=== PATIENT | female | born 1950 | race Caucasian/White ===

== ENCOUNTER → 2023-05-13 06:27 | Day surgery (SDC) | payer MEDICARE, OTHER, SELFPAY | LOC: GI 06:27 | PROVIDERS: ATTENDING PHYSICIAN Internal Medicine | DX: R14.2 Eructation (principal); R10.13 Epigastric pain; K44.9 Diaphragmatic hernia without obstruction or gangrene; K31.7 Polyp of stomach and duodenum; K31.89 Other diseases of stomach and duodenum; K21.00 Gastro-esophageal reflux disease with esophagitis, without bleeding | CPT/HCPCS: 43251; 43239; 88342 ==

== ENCOUNTER 2023-07-12 11:46 | Emergency (ER) | payer MEDICARE, OTHER, SELFPAY ==
[2023-07-12 12:10] VITALS: BP 131/63
[2023-07-12 16:51] LABS: % Basophils 1.1 % (0-2); % Eosinophils 2.8 % (0-6); % Immature Granulocytes 0.1 % (0-0.5); % Lymphocytes 19.6 % (20.5-51.1); % Monocytes 6.9 % (1.7-9.3); % Neutrophils 69.5 % (42.2-75.2); Absolute Basophils 0.1 10^3/uL (0-0.2); Absolute Eosinophils 0.2 10^3/uL (0-0.7); Absolute Lymphocytes 1.4 10^3/uL (1.2-3.4); Absolute Monocytes 0.5 10^3/uL (0.1-0.6); Hematocrit 43.8 % (37.0-47.0); Hemoglobin 14.8 g/dL (12.0-16.0); Mean Corp Hgb Conc. 33.8 g/dL (33.0-37.0); Mean Corpuscular Hgb 29.7 pg (27.0-31.0); Mean Corpuscular Volume 87.8 fL (81.0-99.0); Mean Platelet Volume 9.5 fL (7.4-10.4); Nucleated Red Blood Cells % 0 %; Platelet Count 258 10^3/uL (130-400); Red Blood Cell Count 4.99 10^6/uL (4.20-5.40); Red Cell Dist. Width 12.9 % (11.5-14.5); White Blood Cell Count 7.1 10^3/uL (4.8-10.8)
[2023-07-12 17:00] VITALS: BP 122/73
[2023-07-12 17:05] LABS: ALT (SGPT) 27 U/L (0-35); AST (SGOT) 42 U/L (14-36); Albumin 4.4 g/dl (3.5-5.0); Alkaline Phosphatase 99 U/L (38-126); Blood Urea Nitrogen 21 mg/dl (7-17); Calcium 10.5 mg/dl (8.4-10.2); Carbon Dioxide 28 mmol/L (22-30); Chloride 100 mmol/L (98-107); Glucose 85 mg/dl (70-99); Potassium 4.3 mmol/L (3.5-5.1); Sodium 134 mmol/L (135-145); Total Bilirubin 0.7 mg/dl (0.2-1.3); Total Protein 7.5 g/dl (6.3-8.2); eGFR > 60.00
[2023-07-12 17:15] LABS: Troponin I < 0.012 ng/ml
[2023-07-12 17:35] LABS: TSH Reflex To Free T4 2.73 uIU/ml (0.47-4.68)
[2023-07-12 17:54] LABS: Urine Albumin Negative (Neg - Trace); Urine Bilirubin Negative (Negative); Urine Character Clear (Clear); Urine Color Yellow; Urine Glucose Negative (Negative); Urine Ketone 2+ (Negative); Urine Leukocyte Trace (Negative); Urine Nitrite Negative (Negative); Urine Occult Blood Negative (Negative); Urine Specific Gravity 1.025 (<1.030); Urine Urobilinogen Negative (Neg - 1+)
[2023-07-12 18:00] VITALS: BP 133/77
[2023-07-12 18:05] LABS: Urine Bacteria Many (Negative); Urine White Cell 0-2 /HPF (0-5)
--- NOTE | 2023-07-12 18:56 | ED.GENMED ---
History of Present Illness
General
Chief Complaint: Fatigue
Source: patient
Exam Limitations: none
Time Seen by Provider: 07/12/23 15:49
Nursing documentation reviewed up to this point in time: agreed with
Travel History
Have you had any contact with someone who has COVID-19?: No
Do you have any symptoms of coronavirus? Fever > 100 degrees, chills, cough, shortness of breath, sore throat, loss of taste or smell, muscle aches, or headache?: No
History of Present Illness
History of Present Illness:
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
but no ongoing readings from her watch that she has been wearing throughout the remainder of the day. She tried to go to work and felt fatigued which prompted come to the ER. Denies specific chest pain nausea vomiting any recent change in
medications or caffeine use.
Past History
Past History
ED Past Medical History: Asthma, Cancer (Right breast cancer), Hypercholesterolemia and Other (GERD, ischemic colitis, diverticulitis)
ED Past Surgical History: Gynecological (Tubal ligation) and Other (Right mastectomy with reconstruction)
Social History
Tobacco: Non-smoker
Alcohol: Occasional
Drug: None
Personal:
Living: with family
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
Family History
Family History: Other (Patient's grandmother had heart disease in her 50s and 60s.)
Review of Systems
Review of Systems
Allergies reviewed?: Yes
All Other Systems: ROS reviewed and negative except as documented in HPI and ROS
Phy Exam
Physical Exam
Physical Exam:
GENERAL: Alert , in no apparent distress
EYE: pupils equal and reactive
NECK: Supple, no significant adenopathy.
ENT: o/p clr, mmm.
CARDIAC: Regular rate and rhythm .
LUNGS: Clear breath sounds bilaterally, no acute respiratory distress, no wheezes/rales/rhonchi
ABDOMEN: Soft, without focal tenderness, no r/g, no cvat
NEUROLOGICAL: Alert and oriented, no focal neuro deficits
SKIN: Warm and dry, skin intact.
MUSCULOSKELETAL: No edema, well perfused.
PSYCH: Normal and appropriate interaction.
Course
Orders/Labs/Results
Orders:
Orders
07/12/23 12:13
Electrocardiogram (*1) Urgent
Reason for Study: Chest Pain
EKG- Treatment ONCE
07/12/23 15:51
Add On- LAB Urgent
Tests Added?: tsh free t4
07/12/23 16:42
Complete Blood Count/With Diff Urgent
Comprehensive Metabolic Panel Urgent
TSH Reflex To Free T4 Urgent
Comment: TSH FREE T4 ADDED ON BY FLOOR 3:50PM 07-12-23
Troponin I Routine
07/12/23 17:48
Urinalysis Reflex To Culture Urgent
Date Specimen was Collected: 07/12/23
Time Specimen was Collected: 17:44
Urine Microscopic Reflex Cult Urgent
Urine Culture Urgent
YURY Source: U
Specimen Description:
Date Specimen was Collected: 07/12/23
Time Specimen was Collected: 17:44
Abnormal Lab Results
07/12/23 07/12/23
16:42 17:48
Lymphocytes % 19.6 L %
(20.5-51.1)
Sodium 134 L mmol/L
(135-145)
BUN 21 H mg/dl
(7-17)
Calcium 10.5 H mg/dl
(8.4-10.2)
AST 42 H U/L
(14-36)
Urine Ketones 2+ A
(Negative)
Leukocyte Esterase Rfl Trace A
(Negative)
Urine RBC 3-6 A /HPF
(0-2)
Urine Bacteria (Reflex) Many A
(Negative)
07/12/23 16:42
07/12/23 16:42
Vital Signs
Initial and Last Documented VS:
Initial Vital Signs
Temp Pulse Resp BP Pulse Ox
98.4 F 72 20 131/63 97
07/12/23 12:10 07/12/23 12:10 07/12/23 12:10 07/12/23 12:10 07/12/23 12:10
Last Documented Vital Signs
Temp Pulse Resp BP Pulse Ox
98.4 F 72 15 148/77 98
07/12/23 12:10 07/12/23 19:00 07/12/23 19:00 07/12/23 19:00 07/12/23 19:00
MDM/Problems Addressed
MDM/Problems Addressed:
72-year-old female presenting to the emergency department today with concerns of generalized weakness fatigue symptoms and some palpitations. Potentially in A-fib on and on home monitor though normal EKG here and no A-fib on the monitor for
multiple hours here. Vital signs normal throughout ER stay labs unremarkable troponin negative urinalysis normal. Patient generally well-appearing no acute distress throughout ER stay. She was advised to start aspirin but is [id number]. She
was advised for close cardiac follow-up for further testing of and assessment. Return precautions given.
*Critical Care Note
Total Time (30-74mins, 75-104mins- exclusive of procedures): Not Applicable
ED Attending Note
-
Portions of this chart may have been created with voice recognition software.� Occasional wrong word or��sound alike� substitutions may have occurred due to the inherent limitations of voice recognition software.
Discharge Plan
Departure
Patient Disposition: Home (Routine Discharge)
Date of Disposition: 07/12/23
Time of Disposition: 18:56
Patient with high blood pressure during this ER visit?: No
Condition: Good
Covid-19: Not Applicable
Discharge Problem:
Fatigue
Instructions: Chest Pain CBC Follow Up
Prescriptions:
No Action
albuterol sulfate 1 PUFF HFA aerosol inhaler
1 puff inhalation R Q4HPRN PRN (Reason: asthma)
esomeprazole magnesium [Nexium] 20 MG capsule,delayed release(DR/EC)
20 mg PO DAILY
pravastatin 20 MG tablet
20 mg PO QPM
Symbicort 160/4.5 Mcg Inhaler:
2 puff inhalation BID
Spiriva Respimat 1 PUFF mist
2 puff inhalation DAILY
acetaminophen [Tylenol Ex Str Arthritis Pain] 500 mg Tablet
1,000 mg PO PRN PRN (Reason: pain)
amoxicillin-pot clavulanate 875-125 mg tablet
1 tab PO BID Qty: 13 0RF
Referrals:
Marquez Roche MD [Family Provider] -
Activity Restrictions/Additional Instructions:
You came to the emergency department today with concerns of fatigue generalized weakness prior to arrival. He also concerns of potential atrial fibrillation that was read on a home monitor. Here you are not in atrial fibrillation you had a normal
EKG. It is possible that you had an intermittent and short-lived episode of this. Concerning this please follow closely with cardiology for further assessment and further cardiac testing. Please take an aspirin daily in the meantime. Return to
the emergency department for any worsening, new or concerning symptoms.
Interventions
Interventions:
*Risk Screen - Suicide Last Done: 07/12/23 12:10
*General Assessment Last Done: 07/12/23 12:10
*Neglect/Abuse Screening Last Done: 07/12/23 12:10
ED- Fall Risk Assessment Last Done: 07/12/23 19:15
*ED COVID-19 Vaccine History Last Done: 07/12/23 19:15
*Nursing Disposition Last Done: 07/12/23 19:15
Discharge Date and Time
Discharge Date/Time: 07/12/23 19:15
Print Language: KINYARWANDA
[2023-07-12 19:00] VITALS: BP 148/77
== END 2023-07-12 19:15 | disposition home or self-care (01) ==
LOC: EMR 11:46
PROVIDERS: Physician Assistant; Student in an Organized Health Care Education/Training Program; EMERGENCY PHYSICIAN Emergency Medicine; FAMILY PHYSICIAN Family Medicine
DX: R53.83 Other fatigue (principal); R53.1 Weakness; R00.2 Palpitations; J45.909 Unspecified asthma, uncomplicated; E78.00 Pure hypercholesterolemia, unspecified; K21.9 Gastro-esophageal reflux disease without esophagitis; K57.92 Diverticulitis of intestine, part unspecified, without perforation or abscess without bleeding; K55.9 Vascular disorder of intestine, unspecified; Z85.3 Personal history of malignant neoplasm of breast; Z90.11 Acquired absence of right breast and nipple; Z88.1 Allergy status to other antibiotic agents; Z91.013 Allergy to seafood
CPT/HCPCS: 99283; 80053; 81003; 81015; 84443; 84484; 85025; 87086; 93005

== ENCOUNTER → 2023-07-30 11:26 | Outpatient (REF) | payer MEDICARE, OTHER, SELFPAY | LOC: DHCBC/DCA 11:26 | PROVIDERS: ATTENDING PHYSICIAN Internal Medicine Cardiovascular Disease; FAMILY PHYSICIAN Family Medicine | DX: R07.89 Other chest pain (principal) | CPT/HCPCS: 78452; 93017; A9500; J2785 ==

== ENCOUNTER 2024-03-09 22:29 | Inpatient (IN) | payer MEDICARE, OTHER, SELFPAY ==
[2024-03-09] VITALS (7 sets, daily range): BP systolic 112–153; BP diastolic 51–72; BMI 26.6
--- NOTE | 2024-03-09 17:58 | ED.GENMED ---
ED Provider Triage
<Felicita Piña PA-C - Last Filed: 03/09/24 17:59>
-
Patient seen by provider in Triage?: Seen in Triage
Attestation: A medical screening examination has been initiated by a qualified medical provider. Based on the assessment performed at this time, it has been determined that an emergent medical condition may exist and the patient has been informed
that further medical evaluation and possible additional diagnostic testing may be needed.
HPI: 73yoF here with a cough and SOB since yesterday. Hx of COPD. Using albuterol every hour. Started on azithromycin and prednisone by PCP today. Kaylene currently has the flu.
GENERAL: Alert , in no apparent distress
EYE: No visual abnormalities.
NECK: Trachea midline
ENT: No visible abnormalities.
LUNGS: No acute respiratory distress
NEUROLOGICAL: Alert and oriented
SKIN: Skin intact. No visible changes.
MUSCULOSKELETAL: Moving extremities normally
PSYCH: Normal and appropriate interaction.
This is a medical evaluation conducted in person to initiate diagnostic evaluation and provide initial therapeutics. Please see further documentation by the treating clinician.
Cardiac labs, EKG, COVID/flu swab, and CXR ordered.
History of Present Illness
<Felicita Piña PA-C - Last Filed: 03/09/24 17:59>
General
Chief Complaint: Breathing Problem
Time Seen by Provider: 03/09/24 19:11
<Magdaleno Zamora DO - Last Filed: 03/10/24 01:48>
General
Source: patient
History of Present Illness
History of Present Illness:
This is 73-year-old female with history of asthma and COPD who presents short of breath. Patient states she has had a cough started yesterday but today just felt sick and cough persisted. Went to see her PCP who gave her Z-Philip and a Medrol
Dosepak. The patient admits that she also has albuterol rescue at home. Patient states she just felt more short of breath. Family member has the flu.
Past History
<Felicita Piña PA-C - Last Filed: 03/09/24 17:59>
Past History
ED Past Medical History: Asthma, Cancer (Right breast cancer), Hypercholesterolemia and Other (GERD, ischemic colitis, diverticulitis)
ED Past Surgical History: Gynecological (Tubal ligation) and Other (Right mastectomy with reconstruction)
Social History
Tobacco: Non-smoker
Alcohol: Occasional
Drug: None
Personal:
Living: with family
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
Family History
Family History: Other (Patient's grandmother had heart disease in her 50s and 60s.)
Phy Exam
<Magdaleno Zamora DO - Last Filed: 03/10/24 01:48>
Physical Exam
Physical Exam:
CONSTITUTIONAL Patient alert and oriented to person, place and time. Well-appearing. Vital signs reviewed.
HEAD atraumatic, normocephalic.
EYES eyelids normal to inspection, Extraocular muscles intact, Conjunctiva normal, Sclera normal.
NECK normal range of motion, Trachea midline, no jugular venous distention.
RESPIRATORY CHEST No respiratory distress noted, Chest expansion equal, scant bilateral.
CARDIOVASCULAR regular rate and rhythm, Heart sounds normal.
BACK normal inspection, no obvious deformities
UPPER EXTREMITY range of motion normal, Motor strength normal, no cyanosis, no edema.
LOWER EXTREMITY range of motion normal, Motor strength normal, no cyanosis, no edema.
NEURO Speech normal, No focal motor deficits, Bassam coma scale 15, Memory normal, Cranial Nerves intact to screening exam.
SKIN skin warm, dry, and normal in color.
Scores
<Magdaleno Zamora DO - Last Filed: 03/10/24 01:48>
Heart Failure Risk
Heart Failure Risk Score: Not Applicable
Course
<Felicita Piña PA-C - Last Filed: 03/09/24 17:59>
Orders/Labs/Results
Orders:
Orders
03/09/24 17:52
Chest [CR Chest - 2 Views ] Urgent
Comment:
Reason For Exam: cough
03/09/24 17:58
Electrocardiogram (*1) Urgent
Reason for Study: Shortness of Breath
EKG- Treatment ONCE
03/09/24 18:03
COVID-19 Antigen Urgent
Source: Nasal Swab
Complete Blood Count/With Diff Urgent
Comprehensive Metabolic Panel Urgent
Troponin I Urgent
Influenza A+B Rapid Molecular Urgent
YURY Source: Nasal Swab
Specimen Description:
03/09/24 19:30
Ipratropium/Albuterol Sulfate [Duoneb] 3 ml INH R NOW STA
Oseltamivir Phosphate [Tamiflu] 75 mg PO NOW STA
03/09/24 19:31
Ipratropium/Albuterol Sulfate [Duoneb] 3 ml INH R NOW STA
03/09/24 21:10
Dexamethasone Sod Phosphate [Decadron] 10 mg IV NOW STA
03/09/24 21:34
Urine Osmolality Random [Osmolality, Random Urine] Routine
Date Specimen was Collected: 03/10/24
Time Specimen was Collected: 00:40
Urine Sodium Routine
Date Specimen was Collected: 03/10/24
Time Specimen was Collected: 00:40
03/09/24 21:49
Admit/Transfer Patient As Directed
Co-Sign Provider:
Level of Care: Inpatient admission
Assign to:: Medical/Surgical
Physician / Group: Vi Mendez
Diagnosis: Influenza A, hypoxic resp insufficiency
Reason for Hospitalization: Influenza A, hypoxic resp insufficiency
Expected length of stay greater than two midnights?: Yes
ELOS- Estimated Length of Stay in days: 3
I certify the patient meets the requirements for IP care: Yes
PRN Pain Medication Management As Directed
May give lesser potent ordered pain med per pt: Yes
preference::
Protocol:: Medication orders for pain may be administered in a
manner that supports deferring to patient preference
when the pt is:
- Requesting an ordered lesser potent pain medication.
Least to most potent pain medications are defined
as: acetaminophen < NSAID < tramadol < opioids
(morphine, oxycodone, hydromorphone).
- Requesting a lesser dose of the same medication IF
ORDERED.
- Requesting a less intrusive route of administration
if both routes are prescribed by the provider (PO <
IV).
03/09/24 21:50
Code Status As Directed
Resuscitation Status: Full Code
03/09/24 23:15
Acetaminophen [Tylenol] 650 mg PO Q4HPRN PRN
Benzonatate [Tessalon Perles] 200 mg PO TIDPRN PRN
Guaifenesin [Mucinex] 600 mg PO Q12
Ipratropium/Albuterol Sulfate [Duoneb] 3 ml INH R Q4HPRN PRN
03/09/24 23:15
Activity As Directed
Activity Level: As Tolerated
Intake/ Output As Directed
Frequency: Per unit guidelines
Vital Signs As Directed
Frequency: Per unit guidelines
Copd Education [RESP] Routine
DX Deep Vein Thrombosis Video Routine
03/10/24 Breakfast
Regular
At Your Request: Full Participation
Fluid Restriction: 1440 mL/day (48 oz)
Basic Metabolic Panel IN AM
Complete Blood Count/With Diff IN AM
03/10/24 08:00
Dexamethasone Sod Phosphate [Decadron] 4 mg IV Q12H
Ipratropium/Albuterol Sulfate [Duoneb] 3 ml INH R QID
Oseltamivir Phosphate [Tamiflu] 75 mg PO BID
Pantoprazole [Protonix] 40 mg PO DAILY
03/10/24 18:00
Enoxaparin Sodium [Lovenox] 40 mg SC QPM
Pravastatin Sodium [Pravachol] 20 mg PO QPM
Abnormal Lab Results
03/09/24
18:03
Absolute Neuts (auto) 7.2 H 10^3/uL
(1.4-6.5)
Absolute Lymphs (auto) 0.2 L 10^3/uL
(1.2-3.4)
Neutrophils % 94.8 H %
(42.2-75.2)
Lymphocytes % 2.8 L %
(20.5-51.1)
Monocytes % 1.6 L %
(1.7-9.3)
Sodium 129 L mmol/L
(135-145)
Glucose 152 H mg/dl
(70-99)
AST 44 H U/L
(14-36)
03/09/24 18:03
03/09/24 18:03
Vital Signs
Initial and Last Documented VS:
Initial Vital Signs
Temp Pulse Resp BP Pulse Ox
98.6 F 95 20 112/72 96
03/09/24 17:46 03/09/24 17:46 03/09/24 17:46 03/09/24 17:46 03/09/24 17:46
Last Documented Vital Signs
Temp Pulse Resp BP Pulse Ox
98.3 F 85 23 116/51 95
03/09/24 23:15 03/09/24 23:15 03/09/24 23:00 03/09/24 23:15 03/09/24 23:15
Clauslt;Magdaleno Zamora, - Last Filed: 03/10/24 01:48>
Orders/Labs/Results
Orders:
Orders
03/09/24 17:52
Chest [CR Chest - 2 Views ] Urgent
Comment:
Reason For Exam: cough
03/09/24 17:58
Electrocardiogram (*1) Urgent
Reason for Study: Shortness of Breath
EKG- Treatment ONCE
03/09/24 18:03
COVID-19 Antigen Urgent
Source: Nasal Swab
Complete Blood Count/With Diff Urgent
Comprehensive Metabolic Panel Urgent
Troponin I Urgent
Influenza A+B Rapid Molecular Urgent
YURY Source: Nasal Swab
Specimen Description:
03/09/24 19:30
Ipratropium/Albuterol Sulfate [Duoneb] 3 ml INH R NOW STA
Oseltamivir Phosphate [Tamiflu] 75 mg PO NOW STA
03/09/24 19:31
Ipratropium/Albuterol Sulfate [Duoneb] 3 ml INH R NOW STA
03/09/24 21:10
Dexamethasone Sod Phosphate [Decadron] 10 mg IV NOW STA
03/09/24 21:34
Urine Osmolality Random [Osmolality, Random Urine] Routine
Date Specimen was Collected: 03/10/24
Time Specimen was Collected: 00:40
Urine Sodium Routine
Date Specimen was Collected: 03/10/24
Time Specimen was Collected: 00:40
03/09/24 21:49
Admit/Transfer Patient As Directed
Co-Sign Provider:
Level of Care: Inpatient admission
Assign to:: Medical/Surgical
Physician / Group: Vi Mendez
Diagnosis: Influenza A, hypoxic resp insufficiency
Reason for Hospitalization: Influenza A, hypoxic resp insufficiency
Expected length of stay greater than two midnights?: Yes
ELOS- Estimated Length of Stay in days: 3
I certify the patient meets the requirements for IP care: Yes
PRN Pain Medication Management As Directed
May give lesser potent ordered pain med per pt: Yes
preference::
Protocol:: Medication orders for pain may be administered in a
manner that supports deferring to patient preference
when the pt is:
- Requesting an ordered lesser potent pain medication.
Least to most potent pain medications are defined
as: acetaminophen < NSAID < tramadol < opioids
(morphine, oxycodone, hydromorphone).
- Requesting a lesser dose of the same medication IF
ORDERED.
- Requesting a less intrusive route of administration
if both routes are prescribed by the provider (PO <
IV).
03/09/24 21:50
Code Status As Directed
Resuscitation Status: Full Code
03/09/24 23:15
Acetaminophen [Tylenol] 650 mg PO Q4HPRN PRN
Benzonatate [Tessalon Perles] 200 mg PO TIDPRN PRN
Guaifenesin [Mucinex] 600 mg PO Q12
Ipratropium/Albuterol Sulfate [Duoneb] 3 ml INH R Q4HPRN PRN
03/09/24 23:15
Activity As Directed
Activity Level: As Tolerated
Intake/ Output As Directed
Frequency: Per unit guidelines
Vital Signs As Directed
Frequency: Per unit guidelines
Copd Education [RESP] Routine
DX Deep Vein Thrombosis Video Routine
03/10/24 Breakfast
Regular
At Your Request: Full Participation
Fluid Restriction: 1440 mL/day (48 oz)
Basic Metabolic Panel IN AM
Complete Blood Count/With Diff IN AM
03/10/24 08:00
Dexamethasone Sod Phosphate [Decadron] 4 mg IV Q12H
Ipratropium/Albuterol Sulfate [Duoneb] 3 ml INH R QID
Oseltamivir Phosphate [Tamiflu] 75 mg PO BID
Pantoprazole [Protonix] 40 mg PO DAILY
03/10/24 18:00
Enoxaparin Sodium [Lovenox] 40 mg SC QPM
Pravastatin Sodium [Pravachol] 20 mg PO QPM
Abnormal Lab Results
03/09/24
18:03
Absolute Neuts (auto) 7.2 H 10^3/uL
(1.4-6.5)
Absolute Lymphs (auto) 0.2 L 10^3/uL
(1.2-3.4)
Neutrophils % 94.8 H %
(42.2-75.2)
Lymphocytes % 2.8 L %
(20.5-51.1)
Monocytes % 1.6 L %
(1.7-9.3)
Sodium 129 L mmol/L
(135-145)
Glucose 152 H mg/dl
(70-99)
AST 44 H U/L
(14-36)
03/09/24 18:03
03/09/24 18:03
Vital Signs
Initial and Last Documented VS:
Initial Vital Signs
Temp Pulse Resp BP Pulse Ox
98.6 F 95 20 112/72 96
03/09/24 17:46 03/09/24 17:46 03/09/24 17:46 03/09/24 17:46 03/09/24 17:46
Last Documented Vital Signs
Temp Pulse Resp BP Pulse Ox
98.3 F 85 23 116/51 95
03/09/24 23:15 03/09/24 23:15 03/09/24 23:00 03/09/24 23:15 03/09/24 23:15
<Magdaleno Zamora DO - Last Filed: 03/10/24 01:48>
MDM/Problems Addressed
Differential Diagnosis Includes:
Pneumonia, influenza, asthma, bronchitis, CHF
MDM/Problems Addressed:
Influenza A, hypoxia
<Magdaleno Zamora DO - Last Filed: 03/10/24 01:48>
*Radiology
Radiology exam reviewed: radiology read reviewed
*Pulse Oximetry
Patient hypoxic: yes
*EKG
Interpreted by ED Provider?: Yes
Interpretation: normal
Rate: normal
Rhythm: sinus
[place]: normal axis
QRS Pattern: normal QRS
Ischemia: no ischemia
*Editor Continuity And Script Interpretation
Rate: normal
Interpretation: normal
Rhythm: sinus
*Critical Care Note
Total Time (30-74mins, 75-104mins- exclusive of procedures): Not Applicable
Data Reviewed
Source: patient
Prescriptions/Medications Considered But Not Given:
Considered antibiotics but influenza A positive
<Magdaleno Zamora DO - Last Filed: 03/10/24 01:48>
Patient Management
Discussion with other providers: Hospitalist
Escalation/DeEscalation of care consider admission/obs:
Patient reassessed and continues to feel short of breath. She feels little bit better but continues to feel short of breath and has a pulse ox of 91%. Mildly tachycardic. In light of her persistent dyspnea and hypoxia, admit.
ED Attending Note
<Felicita Piña PA-C - Last Filed: 03/09/24 17:59>
-
Portions of this chart may have been created with voice recognition software.� Occasional wrong word or��sound alike� substitutions may have occurred due to the inherent limitations of voice recognition software.
Discharge Plan
Departure
Patient Disposition: Admit
Date of Disposition: 03/09/24
Time of Disposition: 21:16
Admit to: Telemetry
Presentation/result/management discussed w/ accepting MD/DO: Hospitalist
Discharge Problem:
Hypoxia, Influenza A, Acute asthma exacerbation
Interventions
Interventions:
*Risk Screen - Suicide Last Done: 03/09/24 17:46
*General Assessment Last Done: 03/09/24 17:46
*Neglect/Abuse Screening Last Done: 03/09/24 17:46
ED- Fall Risk Assessment Last Done: 03/09/24 19:08
*ED COVID-19 Vaccine History Last Done: 03/10/24 00:05
*Nursing Disposition Last Done: 03/09/24 23:05
ED- Cardiac Assessment Last Done: 03/09/24 19:08
ED- Pulmonary Assessment Last Done: 03/09/24 19:08
Discharge Date and Time
Discharge Date/Time: 03/09/24 23:05
[2024-03-09 18:14] LABS: % Basophils 0.5 % (0-2); % Immature Granulocytes 0.3 % (0-0.5); % Lymphocytes 2.8 % (20.5-51.1); % Monocytes 1.6 % (1.7-9.3); % Neutrophils 94.8 % (42.2-75.2); Absolute Lymphocytes 0.2 10^3/uL (1.2-3.4); Absolute Monocytes 0.1 10^3/uL (0.1-0.6); Absolute Neutrophils 7.2 10^3/uL (1.4-6.5); Hematocrit 40.2 % (37.0-47.0); Hemoglobin 13.8 g/dL (12.0-16.0); Mean Corp Hgb Conc. 34.3 g/dL (33.0-37.0); Mean Corpuscular Hgb 30.1 pg (27.0-31.0); Mean Corpuscular Volume 87.6 fL (81.0-99.0); Mean Platelet Volume 9.3 fL (7.4-10.4); Nucleated Red Blood Cells % 0 %; Platelet Count 230 10^3/uL (130-400); Red Blood Cell Count 4.59 10^6/uL (4.20-5.40); Red Cell Dist. Width 13.2 % (11.5-14.5); White Blood Cell Count 7.6 10^3/uL (4.8-10.8)
[2024-03-09 18:27] LABS: ALT (SGPT) 29 U/L (0-35); AST (SGOT) 44 U/L (14-36); Albumin 4.2 g/dl (3.5-5.0); Alkaline Phosphatase 86 U/L (38-126); Blood Urea Nitrogen 14 mg/dl (7-17); Calcium 9.7 mg/dl (8.4-10.2); Carbon Dioxide 22 mmol/L (22-30); Chloride 99 mmol/L (98-107); Glucose 152 mg/dl (70-99); Potassium 4.1 mmol/L (3.5-5.1); Sodium 129 mmol/L (135-145); Total Bilirubin 0.4 mg/dl (0.2-1.3); eGFR > 60.00
[2024-03-09 18:28] LABS: COVID-19 Antigen Negative (Negative)
[2024-03-09 18:37] LABS: Troponin I < 0.012 ng/ml
[2024-03-09] MEDS: TAMIFLU 75 MG PO (19:34)
[2024-03-09] MEDS: DUONEB 3 ML INH ×2 (19:34)
[2024-03-09] MEDS: DECADRON 10 MG IV (21:16)
--- NOTE | 2024-03-09 21:26 | HPS.HSE ---
Family Physician
-
Family Physician: INTERVIEWE UNKNOWN - PT NOT
Chief Complaint
-
cough and shortness of breath
History of Present Illness
Ms. Rita Abreu is a 73 yo woman with hx COPD, HLD, GERD, breast CA s/p mastectomy, chemo and radiation presents to the ER with cough and shortness of breath. Patient's grandson has the flu.
Yesterday morning developed a cough, today she had more shortness of breath. She went to see her PCP and was prescribed Azithromycin and Prednisone. Patient had increased work of breathing and came to the ER.
No fevers/chills. Cough is non-productive. No chest pain. No nausea/vomiting/diarrhea. No body aches. Feels fatigued. No LE swelling. No rash.
Medical History
Past Medical History
Past Medical History: Reports Other (COPD, HLD, GERD, breast CA s/p mastectomy, chemo and radiatio)
Past Surgical History: Reports Gynocological and Other (right mastectomy and reconstruction, left wrist surgery 2021)
Social History
Tobacco: Non-smoker
Alcohol: Occasional
Family History
Family History: Not pertinent
Allergies / Home Medications
Allergies reflects when Allergies were last updated in [facility].
Home Medications with original date entered in [facility]
Allergy/Medication List:
Allergies
Allergy/AdvReac Type Severity Reaction Status Date / Time
shellfish derived Allergy Mild Vomiting Verified 03/30/22 11:03
levofloxacin [From Levaquin] AdvReac abdominal Verified 03/30/22 11:03
pain
Home Medications
albuterol sulfate 90 mcg/actuation aerosol inhaler 1 puff inhalation R Q4HPRN PRN asthma 10/20/13
esomeprazole magnesium 20 mg capsule,delayed release (Nexium) 20 mg PO DAILY 05/08/15
pravastatin 20 mg tablet 20 mg PO QPM 07/23/18
Symbicort 160/4.5 Mcg Inhaler: 2 puff inhalation BID 03/03/21
tiotropium bromide 2.5 mcg/actuation mist for inhalation (Spiriva Respimat) 2 puff inhalation DAILY 03/05/21
acetaminophen 500 mg tablet 1,000 mg PO PRN PRN pain 01/27/22
amoxicillin 875 mg-potassium clavulanate 125 mg tablet 1 tab PO BID #13 tabs 03/30/22
awaiting med rec
Review of Systems
-
History Source: Patient
A 12 point ROS was completed and negative except as noted: Yes
Physical Exam
Vital Signs
Vital Signs
Temp Pulse Resp BP Pulse Ox
98.6 F 89 11 141/72 95
03/09/24 17:46 03/09/24 20:30 03/09/24 20:30 03/09/24 20:00 03/09/24 20:30
Physical Exam
General: No Apparent Distress and Conversant
HEENT: PERRLA
Respiratory: Other (cough with inspiration )
Cardiac: S1/S2 and Regular Rhythm
GI: Soft and Non Tender
Musculoskeletal: No Edema
Skin: Warm and Dry; No Rash
Neuro: AO x 3
Psych: Calm
Laboratory Results
-
03/09/24 18:03
03/09/24 18:03
Laboratory Results
Total Bilirubin 0.4 mg/dl (0.2-1.3) 03/09/24 18:03
AST 44 U/L (14-36) H 03/09/24 18:03
ALT 29 U/L (0-35) 03/09/24 18:03
Alkaline Phosphatase 86 U/L (38-126) 03/09/24 18:03
Troponin I < 0.012 ng/ml 03/09/24 18:03
Data Reviewed
-
Diagnostic Radiology: Report Reviewed by me
Lab Data: Labs Reviewed by me
Impression/Plan
-
Ms. Rita Abreu is a 73 yo woman with hx COPD, HLD, GERD, breast CA s/p mastectomy, chemo and radiation presents to the ER with cough and shortness of breath. Patient's grandson has the flu.
Triage VS: T 98.6, P 95, RR 20, BP 112/72, SpO2 96%
LABS: WBC 7.6, Hg 13.8, PLT 230, Na 129, K+ 4.1, Cl 99, CO2 22, BUN 14, Cr 0.6, Glucose 152, Ca 9.7, T. Bili 0.4, AST 44, ALT 29, Alk Phos 86
Trop < 0.012
Covid-19 Negative
Influenza Positive
CXR:
IMPRESSION:
Stable hyperinflation and linear parenchymal scarring at the lung bases. No acute cardiopulmonary process identified.
MAR: IV Decadron, Tamiflu, Duonebs
Influenza A
mild Hypoxic Respiratory Insufficiency
Acute COPD Exacerbation
-admit to med/surg
-continue Tamiflu
-standing duonebs and PRN
-mucinex, Tessalon Perles PRN
-O2 support as needed
Hyponatremia
-follow up urine studies
-suspect SIADH - will fluid restrict for now
GERD
-PPI
HLD
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
DVT PPx Lovenox subQ
FULL CODE
[2024-03-10] MEDS: MUCINEX 600 MG PO ×3 (00:04→21:07)
[2024-03-10] MEDS: TESSALON PERLES 200 MG PO ×3 (00:04→15:52)
[2024-03-10 01:15] LABS: Osmolality Urine 336 mOsm/kg (300-900)
[2024-03-10 01:30] LABS: Urine Sodium 20 mmol/L (30-90)
[2024-03-10] MEDS: NON-FORMULARY ITEM INH (02:04)
[2024-03-10 02:58] VITALS: BMI 26.2
[2024-03-10 07:22] VITALS: BP 115/84
[2024-03-10] MEDS: NON-FORMULARY ITEM 2 PUFF INH ×2 (08:53→21:40)
[2024-03-10] MEDS: VENTOLIN NEBULES 2.5 MG INH ×4 (08:53→21:41)
[2024-03-10 09:11] LABS: % Immature Granulocytes 0.5 % (0-0.5); % Monocytes 3.3 % (1.7-9.3); % Neutrophils 90.2 % (42.2-75.2); Absolute Lymphocytes 0.4 10^3/uL (1.2-3.4); Absolute Monocytes 0.2 10^3/uL (0.1-0.6); Absolute Neutrophils 5.2 10^3/uL (1.4-6.5); Hematocrit 43.1 % (37.0-47.0); Hemoglobin 14.4 g/dL (12.0-16.0); Mean Corp Hgb Conc. 33.4 g/dL (33.0-37.0); Mean Corpuscular Hgb 29.8 pg (27.0-31.0); Mean Platelet Volume 9.8 fL (7.4-10.4); Nucleated Red Blood Cells % 0 %; Platelet Count 248 10^3/uL (130-400); Red Blood Cell Count 4.84 10^6/uL (4.20-5.40); Red Cell Dist. Width 13.2 % (11.5-14.5); White Blood Cell Count 5.8 10^3/uL (4.8-10.8)
[2024-03-10] MEDS: DECADRON 4 MG IV (09:11)
[2024-03-10] MEDS: PROTONIX 40 MG PO (09:11)
[2024-03-10] MEDS: TAMIFLU 75 MG PO ×2 (09:11→21:07)
[2024-03-10 09:23] LABS: Blood Urea Nitrogen 14 mg/dl (7-17); Calcium 10.1 mg/dl (8.4-10.2); Carbon Dioxide 25 mmol/L (22-30); Chloride 101 mmol/L (98-107); Estimated Creatinine Clearance 70 ml/min; Glucose 144 mg/dl (70-99); Potassium 4.3 mmol/L (3.5-5.1); Sodium 135 mmol/L (135-145); eGFR > 60.00
--- NOTE | 2024-03-10 11:19 | CM ---
CM following re: discharge planning.
Reviewed pt's chart, met with pt.
Pt is a 73 year old female, admitted with primary dx of Influenza A, mild Hypoxic Respiratory Insufficiency. Currently requires 2L NC of O2, continue supportive care.
Pt reports she lives with 1SH, 0 steps, has a ramp, has 2 supportive children. Pt described herself as independent in all areas [employer]. No DME, VN or SNF history.
PCP: Elbert Bowser
Pharmacy: [facility]
D/C plan: home with anticipated no needs. family to transport at discharge.
CM will follow with discharge plan updates as hospitalization progresses
[2024-03-10 11:48] LABS: Procalcitonin < 0.05 ng/ml (0.0-0.25)
--- NOTE | 2024-03-10 12:44 | W.PN.HOSP.TC ---
Today's Communication/Plan
-
Wean off O2, O2 goal greater than 92%
Tamiflu
Incentive spirometer, Acapella
DuoNebs
transition to po pred
Assessment / Plan
Assessment / Plan
Physical Exam
General: No Apparent Distress and Conversant
HEENT: PERRLA
Respiratory: Other (cough with inspiration ) no wheezing evident
Cardiac: S1/S2 and Regular Rhythm
GI: Soft and Non Tender
Musculoskeletal: No Edema
Skin: Warm and Dry; No Rash
Neuro: AO x 3
Psych: Calm
Influenza A
mild Hypoxic Respiratory Insufficiency
Acute COPD Exacerbation
-admit to med/surg
-continue Tamiflu
-standing duonebs and PRN
-mucinex, Tessalon Perles PRN
-O2 support as needed
� Incentive spirometry, Acapella
�O2 goal greater than 92%, wean o2 as tolerated
� Transition to prednisone 40 mg
Hyponatremia
-follow up urine studies
-suspect SIADH - will fluid restrict for now
�Improving
GERD
-PPI
HLD
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
DVT PPx Lovenox subQ
FULL CODE
Anticipated Discharge: Within 24 hours
Subjective/Interval History
-
Date of Service: March 10, 2024
Feels better today
Objective Data
-
Labs:
Laboratory Results
03/10/24
07:24
WBC 5.8
Hgb 14.4
Hct 43.1
Plt Count 248
Sodium 135
Potassium 4.3
Chloride 101
Carbon Dioxide 25
BUN 14
Creatinine 0.6
Glucose 144 H
Calcium 10.1
Vital Signs:
Vital Signs
Temp Pulse Resp BP Pulse Ox
97.0 F 84 18 115/84 94
03/10/24 07:22 03/10/24 12:03 03/10/24 12:03 03/10/24 07:22 03/10/24 12:03
Review of Systems
-
History Source: Patient
All other systems: Not reviewed unless documented
Data Reviewed
-
Diagnostic Radiology: Report Reviewed by me
Labs: Labs Reviewed by me
[2024-03-10 15:07] VITALS: BP 110/67
[2024-03-10] MEDS: DELTASONE 40 MG PO (15:51)
[2024-03-10] MEDS: LOVENOX 40 MG SC (17:57)
[2024-03-10] MEDS: PRAVACHOL 20 MG PO (17:58)
[2024-03-10] MEDS: FLUSH (NSS) 1 FLUSH IV (21:18)
[2024-03-10 23:06] VITALS: BP 131/62
[2024-03-11] MEDS: TESSALON PERLES 200 MG PO ×2 (00:01→12:21)
[2024-03-11 07:11] LABS: Hematocrit 41.3 % (37.0-47.0); Mean Corp Hgb Conc. 33.9 g/dL (33.0-37.0); Mean Corpuscular Hgb 30.2 pg (27.0-31.0); Mean Platelet Volume 9.3 fL (7.4-10.4); Platelet Count 258 10^3/uL (130-400); Red Blood Cell Count 4.64 10^6/uL (4.20-5.40); Red Cell Dist. Width 13.4 % (11.5-14.5); White Blood Cell Count 11.7 10^3/uL (4.8-10.8)
[2024-03-11 07:33] LABS: Blood Urea Nitrogen 24 mg/dl (7-17); Carbon Dioxide 26 mmol/L (22-30); Chloride 101 mmol/L (98-107); Estimated Creatinine Clearance 60 ml/min; Glucose 131 mg/dl (70-99); Potassium 4.8 mmol/L (3.5-5.1); Sodium 133 mmol/L (135-145); eGFR > 60.00
[2024-03-11] MEDS: MUCINEX 600 MG PO (07:46)
[2024-03-11] MEDS: TAMIFLU 75 MG PO (07:46)
[2024-03-11] MEDS: DELTASONE 40 MG PO (07:47)
[2024-03-11] MEDS: PROTONIX 40 MG PO (07:47)
[2024-03-11] MEDS: VENTOLIN NEBULES 2.5 MG INH ×2 (08:22→11:09)
[2024-03-11] MEDS: NON-FORMULARY ITEM 2 PUFF INH (08:22)
[2024-03-11 08:50] VITALS: BP 134/58
[2024-03-11 11:00] VITALS: BP 121/79
[2024-03-11 12:24] LABS: Blood Urea Nitrogen 25 mg/dl (7-17); Carbon Dioxide 24 mmol/L (22-30); Chloride 100 mmol/L (98-107); Estimated Creatinine Clearance 53 ml/min; Glucose 277 mg/dl (70-99); Potassium 3.9 mmol/L (3.5-5.1); Sodium 135 mmol/L (135-145); eGFR > 60.00
--- NOTE | 2024-03-11 12:51 | W.PN.HOSP.TC ---
Addendum entered and electronically signed by Dagoberto Calloway MD 03/22/24 17:03:
Acute hypoxic respiratory failure is/was present and is a clinical diagnosis based on tachypnea, oxygen requirement
Addendum entered and electronically signed by Dagoberto Calloway MD 03/11/24 16:30:
[id number]
Original Note:
Today's Communication/Plan
-
Complete prednisone course, 5 days
Complete Tamiflu course
Follow-up PCP outpatient
Follow-up CBC, BMP outpatient within 3-5 days
Assessment / Plan
Assessment / Plan
Physical Exam
General: No Apparent Distress and Conversant
HEENT: PERRLA
Respiratory: Other (cough with inspiration ) no wheezing evident
Cardiac: S1/S2 and Regular Rhythm
GI: Soft and Non Tender
Musculoskeletal: No Edema
Skin: Warm and Dry; No Rash
Neuro: AO x 3
Psych: Calm
Influenza A
mild Hypoxic Respiratory Insufficiency
Acute COPD Exacerbation
-admit to med/surg
-continue Tamiflu�complete course
-mucinex, Ihsan MCKINNEYN, Sara
-O2 support as needed
� Incentive spirometry, Acapella
�O2 goal greater than 92%, wean o2 as tolerated
� Transition to prednisone 40 mg�complete 5-day course
� Weaned off O2, ambulating without requirement of oxygen
Hyponatremia
-Improving, suspect SIADH with pulmonary pathology
�Follow BMP outpatient
GERD
-PPI
HLD
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
DVT PPx Lovenox subQ
FULL CODE
More than 30 minutes spent in discharge including
Final examination of the patient
Summarizing hospital stay
Instructions for continuing care to all relevant caregivers
Preparation of discharge records, prescriptions, and referral forms
Total time spent (36 in minutes):
Anticipated Discharge: Today
Subjective/Interval History
-
Date of Service: March 11, 2024
Wheezing resolved, ambulated with no oxygen requirement
Objective Data
-
Labs:
Laboratory Results
03/11/24 03/11/24
06:51 11:46
WBC 11.7 H
Hgb 14.0
Hct 41.3
Plt Count 258
Sodium 133 L 135
Potassium 4.8 3.9
Chloride 101 100
Carbon Dioxide 26 24
BUN 24 H 25 H
Creatinine 0.7 0.8
Glucose 131 H 277 H
Calcium 10.0 10.0
Vital Signs:
Vital Signs
Temp Pulse Resp BP Pulse Ox
98.3 F 85 18 131/62 93
03/10/24 23:06 03/11/24 11:13 03/11/24 11:13 03/10/24 23:06 03/11/24 11:13
I&O
03/10/24 03/11/24 03/12/24
06:59 06:59 06:59
Intake Total 660 / 660
Output Total 500 / 500
Balance 160 / 160
Review of Systems
-
History Source: Patient
All other systems: Not reviewed unless documented
Data Reviewed
-
Diagnostic Radiology: Report Reviewed by me
Labs: Labs Reviewed by me
--- NOTE | 2024-03-11 12:54 | W.DS.TRANS ---
DC Summary - Emts
-
Discharge Instructions:
Discharge Diagnosis/Procedures Influenza A
mild Hypoxic Respiratory Insufficiency
Acute COPD Exacerbation
Diet Low Fat,Regular
Blood Work sodium and wbc in 3-5 days with pcp
Instructions:
Stand-Alone Forms:
Changes to Home Medications: Yes
Discharge Medications:
DC Medications w/original date entered in [employer]
albuterol sulfate 90 mcg/actuation aerosol inhaler 1 puff inhalation R Q4HPRN PRN asthma 10/20/13
esomeprazole magnesium 20 mg capsule,delayed release (Nexium) 40 mg PO DAILY Gastrointestinal Issue 05/08/15
pravastatin 20 mg tablet 20 mg PO QPM High Cholesterol 07/23/18
budesonide 160 mcg-glycopyr 9 mcg-formot 4.8 mcg/actuation HFA inhaler (Breztri Aerosphere) 2 inh inhalation BID Lung/Breathing Issues 03/09/24
oseltamivir 75 mg capsule 75 mg PO BID #7 caps 03/11/24
prednisone 20 mg tablet 40 mg (2 x 20 mg) PO DAILY #4 tabs 03/11/24
Home Medication Changes
oseltamivir 75 mg capsule 75 mg PO BID #7 caps 03/11/24
prednisone 20 mg tablet 40 mg (2 x 20 mg) PO DAILY #4 tabs 03/11/24
Pending Results: No
--- NOTE | 2024-03-11 13:22 | CM ---
Patient spoke with CM via phone. Patient for discharge today and declined VN supports. Patient has a ride home and CM reviewed IMM form. Patient agreed to sign form when nurse brought it in and indicated that she has no further discharge needs.
CM will continue to follow for discharge planning needs.
Plan; home with no needs anticipated.
--- NOTE | 2024-03-13 14:47 | PN.CDI ---
CDI
- -
CDI:
Physician Documentation Request
Admit Date: 03/09/24 22:29
Dear Doctor Brodie,
Clinical Indicators:
Documentation in the record in the discharge summary includes the diagnosis of respiratory failure.
03/09 H & P, 'Patient had increased work of breathing and came to the ER.'
02 requirement: 2 L
Discharge Summary, ' Mild hypoxic respiratory insufficiency...coming in with mild hypoxic respiratory failure secondary to influenza causing acute COPD exacerbation'
Recognized standard criteria for respiratory failure includes:
(Source: [facility] Jan 2013)
ABGs (1 or more)
�PO2 <60 or RA SpO2 <91%
�PcO2 >50 and pH <7.35
�pO2 decrease or pcO2 increase by 10 mmHg from baseline if known Symptoms:
�Tachypnea, SOB, dyspnea
�Pallor or cyanosis
�Anxiety or restlessness
�Use of accessory muscles
�Retractions (grunting in newborns)
�Unable to speak in complete sentences
Supplemental O2 requirement of 40% (5LPM) or more Intubation is not required
Due to conflicting documentation, please clarify the patient's respiratory status:
Acute hypoxic respiratory failure is/was present and is a clinical diagnosis based on .
(please include this additional support in the medical record)
Acute hypoxic respiratory insufficiency only
Other
Use of terms such as suspected, likely, concern for, or probable (associated with a specific diagnosis that is being evaluated, monitored, or treated as if it exists) are acceptable and can be coded in the inpatient setting, when documented at the
time of discharge.
Thank you,
Martita Rose RN BSN
CDI Specialist
available via tiger text
Please use your independent medical judgment in providing your response.
== END 2024-03-11 14:42 | disposition home or self-care (01) | DRG 193 ==
LOC: 2 NORTH 22:29
PROVIDERS: Physician Assistant; ADMITTING PHYSICIAN Student in an Organized Health Care Education/Training Program; ATTENDING PHYSICIAN Internal Medicine; EMERGENCY PHYSICIAN Emergency Medicine
DX: J10.1 Influenza due to other identified influenza virus with other respiratory manifestations (principal); J96.01 Acute respiratory failure with hypoxia; J44.1 Chronic obstructive pulmonary disease with (acute) exacerbation; E22.2 Syndrome of inappropriate secretion of antidiuretic hormone; J45.901 Unspecified asthma with (acute) exacerbation; E78.00 Pure hypercholesterolemia, unspecified; K21.9 Gastro-esophageal reflux disease without esophagitis; Z85.3 Personal history of malignant neoplasm of breast; Z90.11 Acquired absence of right breast and nipple; K57.90 Diverticulosis of intestine, part unspecified, without perforation or abscess without bleeding; Z82.49 Family history of ischemic heart disease and other diseases of the circulatory system; Z11.52 Encounter for screening for COVID-19
CPT/HCPCS: 71046; 80048; 80053; 83935; 84145; 84300; 84484; 85025; 85027; 87502; 87811; 93005; 94640; 96374; 99285

== ENCOUNTER → 2024-06-30 09:09 | Outpatient (REF) | payer MEDICARE, OTHER, SELFPAY | LOC: HWRAD 09:09 | PROVIDERS: ATTENDING PHYSICIAN Family Medicine | DX: R10.31 Right lower quadrant pain (principal); R10.32 Left lower quadrant pain | CPT/HCPCS: 74176 ==

== ENCOUNTER → 2025-01-24 17:20 | Outpatient (REF) | payer MEDICARE, OTHER, SELFPAY | LOC: PAVMRI 17:20 | PROVIDERS: ATTENDING PHYSICIAN Physician Assistant Surgical; FAMILY PHYSICIAN Family Medicine | DX: M25.512 Pain in left shoulder (principal) | CPT/HCPCS: 73221 ==